=== PATIENT | male | born 1955 | race Caucasian/White ===

== ENCOUNTER → 2021-04-14 11:04 | Outpatient (CLI) | payer MEDICARE, OTHER, SELFPAY ==
[2021-04-14 12:15] LABS: Hemoglobin 14.1 g/dL (13.5-17.5); Mean Corpuscular HGB Conc 33.7 % (30-36); Mean Corpuscular Hemoglobin 32.3 PG (26-34); Platelet Count 224 X10^3/uL (150-400); Red Blood Cell Count 4.37 X10^6/uL (4.5-5.9); Red Cell Distribution Width 12.4 % (11.6-14.8)
[2021-04-14 13:05] LABS: Alanine Aminotransferase 26 IU/L (<50); Albumin 3.8 g/dL (3.5-5.0); Albumin Globulin Ratio 1.7 (1.0-2.8); Alkaline Phosphatase 44 U/L (38-126); Aspartate Aminotransferase 27 IU/L (17-59); BUN Creatinine Ratio 21.9 (6-22); Bilirubin Total 0.7 mg/dL (0.2-1.3); Blood Urea Nitrogen 16 mg/dL (9-20); Calcium 9.6 mg/dL (8.4-10.2); Carbon Dioxide 29 mmol/L (22-32); Chloride 103 mmol/L (98-107); Cholesterol 154 mg/dL (140-199); Estimated Glomerular Filt Rate > 60.0 mL/min (>60); Globulin 2.2 g/dL (1.7-4.1); Glucose 90 mg/dL (80-110); HDL Cholesterol 50 mg/dL (40-60); HEMOLYSIS < 15 (0-50); LDL Cholesterol Calculated 91 mg/dL (<100); Potassium 4.2 mmol/L (3.4-5.1); Sodium 137 mmol/L (137-145); Triglycerides 67 mg/dL (35-150)
[2021-04-14 13:33] LABS: Prostate Specific Antigen Scrn 0.947 ng/mL (0.1-4.0); TSH w/ Reflex to FT4 0.65 uIU/mL (0.47-4.68)
[2021-04-14 13:36] LABS: Testosterone 685 ng/dL (71.8-623)
== END ==
PROVIDERS: PCP Nurse Practitioner Family; Referring Provider Nurse Practitioner Family; Visit Provider Nurse Practitioner Family
DX: N52.9 Male erectile dysfunction, unspecified (principal); Z12.5 Encounter for screening for malignant neoplasm of prostate; F41.9 Anxiety disorder, unspecified; Z13.6 Encounter for screening for cardiovascular disorders
CPT/HCPCS: 36415; 80053; 80061; 84403; 84443; 85027; G0103

== ENCOUNTER → 2021-05-02 14:19 | Outpatient (CLI) | payer MEDICARE, OTHER, SELFPAY ==
--- NOTE | 2021-05-02 14:22 | DI.US.S_ITS ---
PROCEDURE: US ABD AORTA ANEURYSM SCREEN INDICATIONS: screen TECHNIQUE: Real time scanning was performed of the aorta and iliac arteries, with image documentation. COMPARISON: None. FINDINGS: Aorta: Proximal aortic diameter measures 1.8 cm. Mid-aorta measures 1.7 cm. Distal aortic diameter is 1.8 cm. Iliac arteries: Right common iliac artery measures 1.2 cm. Left common iliac artery measures 1.2 cm. IMPRESSION: No abdominal aortic aneurysm. Dictated by: Jacob Pritchard M.D. on 05/02/2021 at 17:14 Approved by: Jacob Pritchard M.D. on 05/02/2021 at 17:14
== END ==
PROVIDERS: PCP Nurse Practitioner Family; Referring Provider Nurse Practitioner Family; Visit Provider Nurse Practitioner Family
DX: Z13.6 Encounter for screening for cardiovascular disorders (principal)
CPT/HCPCS: 76706

== ENCOUNTER → 2022-10-10 13:38 | Outpatient (CLI) | payer MEDICARE, OTHER, SELFPAY ==
[2022-10-10 14:33] LABS: Hemoglobin A1C% w Est Avg Glu 5.3 % (4.0-6.0)
[2022-10-10 14:44] LABS: Add Manual Diff / Slide Review NO; Basophils Absolute Auto 100 /uL (0-100); Basophils Percent Auto 0.8 % (0-2); Eosinophils Absolute Auto 400 /uL (0-450); Hematocrit 44.9 % (41-53); Hemoglobin 15.3 g/dL (13.5-17.5); Lymphocytes Absolute Auto 1600 /uL (1100-4500); Lymphocytes Percent Auto 25.7 % (25-40); Mean Corpuscular Hemoglobin 32.2 PG (26-34); Mean Corpuscular Volume 94.8 fL (80-100); Monocytes Absolute Auto 500 /uL (0-900); Monocytes Percent Auto 7.8 % (3-14); Neutrophils Absolute Auto 3700 /uL (1500-7000); Neutrophils Percent Auto 58.7 % (50-75); Platelet Count 234 X10^3/uL (150-400); Red Blood Cell Count 4.74 X10^6/uL (4.5-5.9); Red Cell Distribution Width 12.8 % (11.6-14.8); White Blood Cell Count 6.4 X10^3/uL (4.5-11.0)
[2022-10-10 14:53] LABS: Alanine Aminotransferase 33 IU/L (<50); Albumin 4.2 g/dL (3.5-5.0); Albumin Globulin Ratio 1.7 (1.0-2.8); Alkaline Phosphatase 71 U/L (38-126); Aspartate Aminotransferase 26 IU/L (17-59); BUN Creatinine Ratio 19.5 (6-22); Bilirubin Total 0.6 mg/dL (0.2-1.3); Blood Urea Nitrogen 15 mg/dL (9-20); Calcium 9.1 mg/dL (8.4-10.2); Carbon Dioxide 27 mmol/L (22-32); Chloride 104 mmol/L (98-107); Cholesterol 193 mg/dL (140-199); Estimated Glomerular Filt Rate > 60 mL/min (>60); Globulin 2.5 g/dL (1.7-4.1); Glucose 90 mg/dL (80-110); HDL Cholesterol 52 mg/dL (40-60); HEMOLYSIS 35 (0-50); LDL Cholesterol Calculated 94 mg/dL (<100); Potassium 4.3 mmol/L (3.4-5.1); Sodium 139 mmol/L (137-145); Total Protein 6.7 g/dL (6.3-8.2); Triglycerides 233 mg/dL (35-150)
== END ==
PROVIDERS: PCP Family Medicine; Referring Provider Family Medicine; Visit Provider Family Medicine
DX: Z00.00 Encounter for general adult medical examination without abnormal findings (principal); K21.9 Gastro-esophageal reflux disease without esophagitis; N52.9 Male erectile dysfunction, unspecified
CPT/HCPCS: 80053; 80061; 83036; 85025

== ENCOUNTER → 2023-11-19 10:14 | Outpatient (CLI) | payer MEDICARE, OTHER, SELFPAY ==
[2023-11-19 13:18] LABS: Alanine Aminotransferase 29 IU/L (<50); Albumin 4.1 g/dL (3.5-5.0); Albumin Globulin Ratio 1.4 (1.0-2.8); Alkaline Phosphatase 51 U/L (38-126); Aspartate Aminotransferase 24 IU/L (17-59); Bilirubin Total 0.6 mg/dL (0.2-1.3); Blood Urea Nitrogen 12 mg/dL (9-20); Calcium 9.5 mg/dL (8.4-10.2); Carbon Dioxide 29 mmol/L (22-32); Chloride 104 mmol/L (98-107); Cholesterol 166 mg/dL (140-199); Estimated Glomerular Filt Rate > 60 mL/min (>60); Globulin 2.9 g/dL (1.7-4.1); Glucose 89 mg/dL (80-110); HDL Cholesterol 47 mg/dL (40-60); HEMOLYSIS 26 (0-50); LDL Cholesterol Calculated 100 mg/dL (<100); Potassium 4.7 mmol/L (3.4-5.1); Sodium 138 mmol/L (137-145); Triglycerides 95 mg/dL (35-150)
== END ==
LOC: LAB 10:15
PROVIDERS: PCP Family Medicine; Referring Provider Family Medicine; Visit Provider Family Medicine
DX: Z00.00 Encounter for general adult medical examination without abnormal findings (principal)
CPT/HCPCS: 36415; 80053; 80061

== ENCOUNTER 2024-04-22 13:24 | Day surgery (SDC) | payer MEDICARE, OTHER, SELFPAY ==
--- NOTE | 2024-04-22 | PATH_ITS ---
[facility] Accession Number: [id number] No. of containers..01 Tissue . 01 Material submitted: . rectum - RECTAL POLYP . 01 Diagnosis: RECTAL POLYP: Hyperplastic polyp. EVELYN 04/28/2024 1110 Local . 01 Electronically signed: . Emeterio Cortez MD, PhD, Pathologist NPI- [id number] . 01 Gross description: . Received in formalin with two patient identifiers and rectal polyp, is a single knutson soft tissue fragment 0.3 cm in greatest dimension. Submitted entirely in cassette A1. ([id number]) /EVELYN 04/23/2024 0932 Local . 01 Pathologist provided ICD-10: K62.1 . 01 CPT . 347625 Specimen Comment: A courtesy copy of this report has been sent to [phone] Performed at: [address] [facility] [id number] [address] MD Phone: [phone]
[2024-04-22] MEDS: LACTATED RINGERS 1,000 ML 42 ML IV (13:30)
[2024-04-22 14:04] VITALS: BP 145/75; PULSE 60; RESP 16; TEMP 37.1; O2SAT 97
--- NOTE | 2024-04-22 14:20 | P.HP_ITS ---
History of Present Illness History of Present Illness Date Patient Seen: 04/22/24 Time Patient Seen: 14:20 Chief complaint: [facility] [place] N[place]ative: 69-year-old man here for screening colonoscopy. Last colonoscopy 2016 normal. No family history of colon cancer. No abdominal concerns today. [facility] Medical History (Updated 10/16/22 @ 15:12 by Andrew Braun DO) Hypertriglyceridemia Medicare annual wellness visit, subsequent GERD (gastroesophageal reflux disease) Erectile dysfunction Anxiety Social History Smoking Status: Former smoker Tobacco: How many years used: 20 second hand exposure: No alcohol intake: never substance use type: does not use Meds Home Medications and Allergies Home Medications Medication Instructions Recorded Confirmed Type glucosamine sulfate 500 mg tablet 500 mg PO DAILY 09/11/22 04/22/24 History (Glucosamine) alprazolam 0.5 mg tablet (Xanax) 0.5 mg PO DAILY PRN anxiety #14 11/16/23 04/22/24 Rx tabs famotidine 20 mg tablet (Pepcid) 20 mg PO BID #180 tabs 11/16/23 04/22/24 Rx sildenafil 100 mg tablet (Viagra) 50 - 100 mg (0.5 - 1 x 100 mg) PO 11/16/23 04/22/24 Rx DAILY PRN sexual activity #30 tabs Allergies Allergy/AdvReac Type Severity Reaction Status Date / Time No Known Drug Allergies Allergy Verified 04/22/24 13:50 Exam Vital Signs (past 8 hours): - 04/22/24 14:04 Temperature 98.7 F Pulse Rate 60 Respiratory Rate 16 Blood Pressure 145/75 H Pulse Oximetry 97 Oxygen Delivery Method Room Air Oxygen Delivery Method Room Air Narrative Exam Narrative: General adult man alert oriented no acute distress Chest nonlabored respiration Extremities warm well perfused Assessment & Plan Assessment & Plan narrative: The patient requires colorectal screening and colonoscopy is recommended. Technical details were discussed. Risks, benefits, alternatives explained. Risks including but not limited to myocardial infarction, aspiration, bleeding, pain, missed lesion, incomplete examination, need for further radiographic studies, intestinal injury, and need for major abdominal surgery were discussed. All questions were answered to their satisfaction, and they are in agreement with this plan.
[2024-04-22 14:50] VITALS: BP 137/64; PULSE 63; RESP 16; TEMP 36.6; O2SAT 96
[2024-04-22 14:55] VITALS: BP 130/73; PULSE 63; RESP 18; TEMP 36.4; O2SAT 98
--- NOTE | 2024-04-22 14:59 | P.OP.COLON_ITS ---
Operative Date/Time/Diagnoses Date of procedure: 04/22/24 Time of procedure: 15:00 Pre-op diagnosis: Colorectal screening Procedure & Clinicians Study performed: Screening colonoscopy Polypectomy Same procedure as scheduled: Yes Indications: Colorectal screening Surgeon: Ej Pascual Procedure Notes Procedure in detail: The history and physical was performed/updated and the patient is ASA class is 2. The procedure was discussed in detail with the patient. Potential risks complications including infection, bleeding, missed diagnosis, perforation, need for surgery, and were explained. Their questions were answered and informed consent was obtained. Patient was brought to the procedure room and placed standard monitoring equipment. The patient's vital signs were monitored continuously throughout the entire procedure. Prior to starting time-out was performed. The patient was placed in the left lateral recumbent position. Procedural sedation was administered by anesthesia. Examination began with a thorough inspection of the perianal area there was no evidence of fissures, fistulae, external hemorrhoids or cutaneous malignancy. The colonoscopy scope was then placed into the anal canal and was advanced to the cecum, which was identified by the ileocecal valve, the appendiceal orifice and the confluence of the taenia. The scope was then slowly withdrawn examining colon thoroughly in all directions, irrigating it of any residual stool. The scope was retroflexed within the rectum The patient tolerated the procedure well. They will be discharged once criteria are met. The prep was of good/excellent quality. The withdrawl time was 6 minutes. FINDINGS * Rectal polyp 3 mm removed biopsy forceps Specimen(s): other (Rectal polyp) Impression: Colonic polyp x1 Post-procedure Plan for aftercare: Follow-up dependent on pathology findings likely 5 years Disposition: same day surgery
[2024-04-22 15:10] VITALS: BP 127/75; PULSE 62; RESP 18; TEMP 36.4; O2SAT 98
== END 2024-04-22 15:25 | disposition home or self-care (01) ==
PROVIDERS: PCP Family Medicine; Referring Provider Surgery; Visit Provider Surgery
PROC: 0DJD8ZZ Inspection of Lower Intestinal Tract, Via Natural or Artificial Opening Endoscopic (ICD-10-PCS; CPT 45378; principal; 2024-04-22 14:15)
DX: Z12.11 Encounter for screening for malignant neoplasm of colon (principal); K62.1 Rectal polyp
CPT/HCPCS: 45380; J2704

== ENCOUNTER → 2024-12-29 13:22 | Outpatient (CLI) | payer MEDICARE, OTHER, SELFPAY ==
[2024-12-29 14:03] LABS: Cholesterol 177 mg/dL (140-199); HDL Cholesterol 45 mg/dL (40-60); LDL Cholesterol Calculated 103 mg/dL (<100); Triglycerides 146 mg/dL (35-150)
[2024-12-29 14:33] LABS: Prostate Specific Antigen Scrn 1.21 ng/mL (0.1-4.0)
[2024-12-29 17:26] LABS: Hep C Virus Ab w/Reflex Quant NEGATIVE s/c (NEGATIVE)
== END ==
PROVIDERS: PCP Family Medicine; Referring Provider Family Medicine; Visit Provider Family Medicine
DX: Z00.00 Encounter for general adult medical examination without abnormal findings (principal); E78.1 Pure hyperglyceridemia; Z12.5 Encounter for screening for malignant neoplasm of prostate; N52.9 Male erectile dysfunction, unspecified
CPT/HCPCS: 36415; 80061; 86803; G0103